=== PATIENT | female | born 1975 | race Caucasian/White ===

== ENCOUNTER 2016-12-14 22:05 | Emergency (ER) | payer MEDICARE ==
[2016-12-14 16:44] LABS: WBC (NOT ORDERED) (RFLEX) 0 (0-5)
[2016-12-14 16:52] LABS: BASOPHILS 0.2 %; BASOPHILS ABSOLUTE 0.02 10/3/uL (0.0-0.16); EOSINOPHILS 1.6 %; EOSINOPHILS ABSOLUTE 0.16 10/3/uL (0.0-0.53); ER CBC TAT 0 Hrs 10 Mins; IMMATURE GRANULOCYTES 0.1 %; IMMATURE GRANULOCYTES ABSOLUTE 0.01 10/3/uL (0.0-0.11); LYMPHOCYTES 25.4 %; LYMPHOCYTES ABSOLUTE 2.55 10/3/uL (0.67-4.30); MEAN CORPUS HGB CONC 34.5 g/dL (32.0-36.0); MEAN CORPUSCULAR HEMOGLOB 29.3 pg (26.0-34.0); MEAN CORPUSCULAR VOLUME 85.1 fL (80-100); MEAN PLATELET VOLUME 10.5 fL (9.2-13.0); NEUTROPHILS 64.7 %; NEUTROPHILS ABSOLUTE 6.49 10/3/uL (2.02-8.40); RBC DISTRIBUTION WIDTH 12.7 % (12.0-16.0)
[2016-12-14 16:53] LABS: HEMATOCRIT 44.4 % (36.0-48.0); HEMOGLOBIN 15.3 g/dL (12.0-16.0); PLATELET COUNT 46 10/3/uL (150-400); RED CELL COUNT 5.22 10/6/uL (4.0-5.6)
[2016-12-14 16:57] LABS: ASCORBIC ACID (UR NOT ORDER) NEG (NEG); BILIRUBIN, URINE NEGATIVE (NEG); ER URINALYSIS TAT 0 Hrs 15 Mins; KETONE, URINE NEGATIVE (NEG); LEUKOCYTE ESTERASE(NOT OR NEG (NEG); NITRITE (URINE) NEG (NEG)
[2016-12-14 16:59] LABS: MANUAL DIFF NO %
[2016-12-14 17:03] LABS: ALBUMIN 3.9 G/DL (3.5-5.0); ALKALINE PHOSPHATASE 77 U/L (45-117); BUN (BLOOD UREA NITROGEN) 11 MG/DL (6-23); CALCIUM, SERUM 8.4 MG/DL (8.5-10.4); CHLORIDE, SERUM 106 MMOL/L (96-112); CO2 (CARBON DIOXIDE) 25 MMOL/L (24-34); CREATININE 0.92 MG/DL (0.55-1.02); GFR AFRICAN AMERICAN 90 ML/MIN (>=60); GFR NON AFRICAN AMERICAN 77 ML/MIN (>=60); GLUCOSE, SERUM 92 MG/DL (60-99); SGOT(AST) 33 U/L (5-40); SGPT(ALT) 82 U/L (5-65); SODIUM, SERUM 142 MMOL/L (135-148); TOTAL BILIRUBIN 0.2 MG/DL (0-1.2)
[2016-12-14 17:04] LABS: GLOBULIN 4.1 G/DL (2.5-4.1)
[2016-12-14 17:21] LABS: RBC MORPHOLOGY NORM (NORMAL)
[~2016-12-14 22:05] MED LIST: 8 HOUR650 MG PO; BENTYL10 PO; BENTYL20 PO; BLOOD PRESSURE; CIP5 PO; LIPITOR20 PO; LOTREL1 CA4 PO; NORV5 PO; TESTOST CYP100 MG/ML IM; ZOL100 PO
== END 2016-12-14 23:50 | disposition home or self-care (01) ==
LOC: ER 22:05
PROVIDERS: Emergency Medicine
DX: R11.2 Nausea with vomiting, unspecified (principal); B96.89 Other specified bacterial agents as the cause of diseases classified elsewhere; D69.6 Thrombocytopenia, unspecified; I10 Essential (primary) hypertension; Z87.442 Personal history of urinary calculi; Z90.710 Acquired absence of both cervix and uterus; Z88.5 Allergy status to narcotic agent; Z88.8 Allergy status to other drugs, medicaments and biological substances; Z91.018 Allergy to other foods; Z79.899 Other long term (current) drug therapy
CPT/HCPCS: 80053; 81001; 83690; 84702; 84703; 85025; 87045; 87046; 87046-59; 87328; 87329; 87493; 87493-59; 87899; 87899-59; 89055; 93005; 96374; 99285; J1980; J2405

== ENCOUNTER 2017-01-16 07:08 | Day surgery (SDC) | payer MEDICARE ==
[2017-01-16 07:28] LABS: BASOPHILS 0.2 %; BASOPHILS ABSOLUTE 0.02 10/3/uL (0.0-0.16); EOSINOPHILS 1.9 %; EOSINOPHILS ABSOLUTE 0.19 10/3/uL (0.0-0.53); HEMATOCRIT 42.6 % (36.0-48.0); HEMOGLOBIN 14.6 g/dL (12.0-16.0); IMMATURE GRANULOCYTES 0.3 %; IMMATURE GRANULOCYTES ABSOLUTE 0.03 10/3/uL (0.0-0.11); LYMPHOCYTES 25.9 %; LYMPHOCYTES ABSOLUTE 2.54 10/3/uL (0.67-4.30); MEAN CORPUS HGB CONC 34.3 g/dL (32.0-36.0); MEAN CORPUSCULAR HEMOGLOB 29.3 pg (26.0-34.0); MEAN CORPUSCULAR VOLUME 85.4 fL (80-100); MEAN PLATELET VOLUME 10.9 fL (9.2-13.0); MONOCYTES 8.9 %; MONOCYTES ABSOLUTE 0.87 10/3/uL (0.21-1.20); NEUTROPHILS 62.8 %; NEUTROPHILS ABSOLUTE 6.17 10/3/uL (2.02-8.40); RED CELL COUNT 4.99 10/6/uL (4.0-5.6); RETICULOCYTE COUNT 1.2 % (0.5-2.5); RETICULOCYTE COUNT ABSOLUTE 58.4 10/3/uL (20.2-119.8); WHITE BLOOD CELLS 9.8 10/3/uL (4.5-10.5)
[2017-01-16 07:41] LABS: BUN (BLOOD UREA NITROGEN) 14 MG/DL (6-23); CHLORIDE, SERUM 106 MMOL/L (96-112); CO2 (CARBON DIOXIDE) 28 MMOL/L (24-34); CREATININE 1.02 MG/DL (0.55-1.02); GFR AFRICAN AMERICAN 79 ML/MIN (>=60); GFR NON AFRICAN AMERICAN 68 ML/MIN (>=60); GLUCOSE, SERUM 103 MG/DL (60-99); POTASSIUM, SERUM 3.9 MMOL/L (3.5-5.3); SODIUM, SERUM 143 MMOL/L (135-148)
[2017-01-16 07:42] LABS: MANUAL DIFF NO %; PLATELET COUNT 32 10/3/uL (150-400)
[2017-01-16 07:58] LABS: RBC MORPHOLOGY NORM (NORMAL)
== END 2017-01-16 11:48 | disposition home or self-care (01) ==
LOC: SDC 07:08
PROVIDERS: Internal Medicine Hematology & Oncology; Pathology Cytopathology
PROC: 07DR3ZX Extraction of Iliac Bone Marrow, Percutaneous Approach, Diagnostic (ICD-10-PCS; principal; 2017-01-16 09:00)
DX: R59.1 Generalized enlarged lymph nodes (principal); R16.1 Splenomegaly, not elsewhere classified; D69.6 Thrombocytopenia, unspecified; A04.7 Enterocolitis due to Clostridium difficile; Z79.899 Other long term (current) drug therapy; Z87.891 Personal history of nicotine dependence; Z87.442 Personal history of urinary calculi; Z88.8 Allergy status to other drugs, medicaments and biological substances; E78.5 Hyperlipidemia, unspecified; I10 Essential (primary) hypertension; Z88.5 Allergy status to narcotic agent
CPT/HCPCS: 80048; 85025; 85045; 88305; 88311; 88313; 88360

== ENCOUNTER 2017-02-05 06:47 | Day surgery (SDC) | payer MEDICARE | END 2017-02-05 23:59 | disposition home or self-care (01) | LOC: DMU 06:47 | DX: R11.2 Nausea with vomiting, unspecified (principal); K21.9 Gastro-esophageal reflux disease without esophagitis; D69.6 Thrombocytopenia, unspecified; K58.9 Irritable bowel syndrome, unspecified; Z87.442 Personal history of urinary calculi; Z98.890 Other specified postprocedural states; Z90.711 Acquired absence of uterus with remaining cervical stump; Z90.49 Acquired absence of other specified parts of digestive tract; Z53.9 Procedure and treatment not carried out, unspecified reason | CPT/HCPCS: 85049 ==